=== PATIENT | male | born 1945 | race Caucasian/White ===

== ENCOUNTER → 2024-03-27 14:09 | Outpatient (REF) | payer OTHER, SELFPAY | LOC: MRI 3T 14:09 | PROVIDERS: ATTENDING PHYSICIAN Internal Medicine | DX: R29.898 Other symptoms and signs involving the musculoskeletal system (principal) | CPT/HCPCS: 72141 ==

== ENCOUNTER → 2024-06-23 14:35 | Outpatient (REF) | payer OTHER, SELFPAY | LOC: PAVMRI 14:35 | PROVIDERS: ATTENDING PHYSICIAN Specialist; FAMILY PHYSICIAN Internal Medicine | DX: G60.3 Idiopathic progressive neuropathy (principal); R53.1 Weakness | CPT/HCPCS: 72158; A9575 ==

== ENCOUNTER → 2024-08-14 10:43 | Outpatient (REF) | payer OTHER, SELFPAY | LOC: PAVMRI 10:43 | PROVIDERS: ATTENDING PHYSICIAN Specialist; FAMILY PHYSICIAN Internal Medicine | DX: R53.1 Weakness (principal); G60.3 Idiopathic progressive neuropathy | CPT/HCPCS: 70553; A9575 ==

== ENCOUNTER → 2024-09-18 11:31 | Outpatient (REF) | payer OTHER, SELFPAY | LOC: PAVMRI 11:31 | PROVIDERS: ATTENDING PHYSICIAN Specialist; FAMILY PHYSICIAN Internal Medicine | DX: I63.331 Cerebral infarction due to thrombosis of right posterior cerebral artery (principal) | CPT/HCPCS: 70544; 70547 ==

== ENCOUNTER → 2024-10-15 13:26 | Outpatient (REF) | payer OTHER, SELFPAY | LOC: RAD 13:26 | PROVIDERS: ATTENDING PHYSICIAN Specialist; FAMILY PHYSICIAN Internal Medicine | DX: I63.331 Cerebral infarction due to thrombosis of right posterior cerebral artery (principal) | CPT/HCPCS: 93925 ==

== ENCOUNTER → 2025-03-27 12:51 | Outpatient (REF) | payer OTHER, SELFPAY | LOC: RCS 12:51 | PROVIDERS: ATTENDING PHYSICIAN Internal Medicine | DX: I50.31 Acute diastolic (congestive) heart failure (principal) | CPT/HCPCS: 93306 ==

== ENCOUNTER → 2025-04-29 11:42 | Outpatient (REF) | payer OTHER, SELFPAY | LOC: DHSLP 11:42 | PROVIDERS: ATTENDING PHYSICIAN Internal Medicine | DX: G47.33 Obstructive sleep apnea (adult) (pediatric) (principal); R09.02 Hypoxemia | CPT/HCPCS: 95800 ==

== ENCOUNTER 2025-04-30 10:13 | Day surgery (SDC) | payer OTHER, SELFPAY ==
[2025-04-30] VITALS (10 sets, daily range): BP systolic 98–115; BP diastolic 48–96; BMI 35.6
[2025-04-30 13:32] LABS: ACT-LR - POC 382 Seconds (116-155)
--- NOTE | 2025-04-30 13:58 | ITS.CL.ANGIO ---
Lead Technician - Angioplasty
Angioplasty
Procedure Report:
CARDIAC CATHETERIZATION REPORT
Date of Procedure: 04/30/2025
Referring: Garth Thompson M.D.
Indication: New cardiomyopathy, congestive heart failure, hospitalized at [facility], consistent dyspnea on exertion.
PROCEDURE:
1. Right heart catheterization.
2. Coronary angiography.
3. Left heart catheterization.
4. Successful IFR of the 60% mid LAD lesion.
5. Successful PCI of the 60% mid LAD lesion.
6. Successful IVUS of the proximal and mid LAD.
A total of 42 minutes of procedural/moderate sedation was utilized. An independent medical records auditor was present to assist with and help manage the patient's level of consciousness and physiologic status.
ACCESS:
1. Failed 6 Luxembourger right radial artery using a modified Seldinger technique delete under ultrasound guidance.
2. 5 Luxembourger right antecubital vein using a modified Seldinger technique with a micropuncture kit under ultrasound guidance.
3. 6 Luxembourger right common femoral artery using a modified Seldinger technique with a micropuncture kit under ultrasound guidance.
CATHETERS:
1. 5 Luxembourger balloon.
2. 5 Luxembourger JL 3.5.
3. 5 Luxembourger JR4.
4. 6 Luxembourger EBU 4.0 guiding catheter.
HEMODYNAMIC DATA
Weight (kg): 109.4
AO (s/d/x, mmHg): 85/59/70
LV (s/x, mmHg): 86/7
PCWP (a/v/x, mmHg):
PA (s/d/x, mmHg): 34/16/22
RV (s/x, mmHg): 34/6
RA (a/v/x, mmHg):
SVC SvO2 (%): 66.4
IVC SvO2 (%): Not obtained.
RA SvO2 (%): Not obtained.
RV SvO2 (%): Not obtained.
PA SvO2 (%): 66.4
SaO2 (%): 93.5
Hbg (g/dL): 15.7
EULOGIO
CO (L/min): 4.50
CI (L/min/m2): 1.9
Thermodilution
CO (L/min): Not performed.
CI (L/min/m2): Not performed.
TPG (mmHg): 15
PVR (Arias Units): 3.33
SVR (dynes*seconds*cm^-5): 1138
AVO2 Diff (Volume %): 5.79
AV gradient (x, mmHg): None.
AV area (cm2): Normal.
MV gradient (x, mmHg): Not obtained.
MV area (cm2): Not obtained.
LEFT VENTRICULOGRAPHY: Not performed.
AORTOGRAPHY: Not performed.
CORONARY ANGIOGRAPHY
Dominance: Right.
Left Main: Normal size, bifurcating vessel. There is no coronary artery disease.
LAD: Normal size vessel giving rise to 2 diagonals before terminating near the apex. There is a 30-40% lesion in the proximal vessel, followed by a 20% lesion in the mid vessel. There is a separate, discrete, hazy 60% lesion in the mid LAD
spanning the origin of D2. There are luminal irregularities in both diagonals.
Ramus: Congenitally absent.
Circumflex: Normal size, nondominant vessel giving rise to 1 large obtuse marginal. There are minor luminal irregularities.
RCA: Large size, dominant vessel. There is a 20% lesion in the distal RCA.
INTERVENTIONS
1. Applying hemostasis to the right radial artery after failed access.
2. Blood pressure support of bradycardia and hypotension during initial diagnostic evaluation.
3. IFR of the 60% mid LAD lesion, demonstrating occlusive disease (0.86).
4. Successful PCI of the occlusive 60% mid LAD lesion (Medtronic Kelvin [place] 3.5 x 22 EDEN, postdilated with a 3.5 NC balloon throughout) with reduction in stenosis to 0% in the LAD, resulting in minor plaque shift into the second diagonal, but
maintaining HERMINIO III flow throughout both vessels.
5. Successful IVUS of the proximal and mid LAD.
Narrative:
During access, the right radial artery was identified on ultrasound and punctured using a standard access needle. The access wire advanced without resistance. While attempting to place the sheath, we encountered significant resistance with
advancement. At that point, the wire was no longer free within the lumen of the sheath, suggesting that there was significant local dissection. The sheath was pulled back and a 5 Luxembourger dilator was advanced over the deformed wire in an attempt to
salvage the access point. The 5 Luxembourger dilator would not advance over the wire and the initial right radial access was abandoned. The patient maintained a good pulse and the radial artery was revisualized under ultrasound. The artery was
punctured again at a more proximal point. Once again, the wire was advanced without resistance and the sheath was readvanced over this wire. Once again, we encountered significant resistance when trying to advance the sheath resulting in
significant deformation of the wire. At this point, we abandon radial access. A radial band was placed for hemostasis and to avoid any local hematoma.
After obtaining femoral access, the patient underwent an uneventful right heart catheterization. Sedation was given after obtaining pulmonary artery saturation. After removing the pulmonary artery catheter, we proceeded with left heart
catheterization and coronary angiography. During this time, we observed that the patient's systemic blood pressure was fairly low. The patient did complain of a sensation like he is going to lose consciousness. LVEDP was 7 mmHg with no gradient
on pullback. The patient was given an IV fluid bolus and phenylephrine 100 mg. Atropine 0.5 mg was given. This resulted in improvement in heart rate and a marginal improvement in his blood pressure. Norepinephrine was started at 5 mcg/kg/min
with excellent blood pressure response. With his blood pressure reestablished, the diagnostic coronary angiography was completed.
The decision was made to perform physiologic testing of the 60% mid LAD lesion spanning the origin of the second diagonal. The diagnostic catheter was removed over a wire and exchanged for a(n) 6 Luxembourger EBU 4.0 guiding catheter. The guiding
catheter was advanced into the ascending aorta and seated in the left main coronary artery. Additional heparin was given to obtain an ACT greater than 250 seconds. An iFR wire was zeroed outside of the body, then inserted into the guiding sheath.
The wire was advanced and the transducer was normalized just outside of the guiding catheter tip. The wire was advanced into the distal LAD. Three iFR measurements were taken. The lesion was determined to be [occlusive/nonocclusive] (0.86).
The decision was made to proceed with percutaneous coronary intervention. The Omni wire was advanced into the second diagonal for protection. A Power Turn Flex wire was advanced into the distal LAD. The 60% mid LAD lesion was predilated with a 3.0
x 12 semi-compliant balloon to 12 arlyn. The semi-compliant balloon was removed and a Medtronic Kelvin [place] 3.5 x 22 drug-eluting stent was advanced. The stent was deployed at 12 atmospheres. The stent balloon was removed. A 3.5 x 15 noncompliant
balloon was advanced into the stent and the stent was postdilated to 16 atmospheres.
Angiography revealed an excellent result in the LAD with plaque shift into the second diagonal. The power turn flex wire was withdrawn into the stent and readvanced into the second diagonal, demonstrating that both arteries were percutaneously
accessible. The Omni wire was removed from the second diagonal and pulled out from behind the jailing stent. As part of this removal, the guide was pulled forward into the LAD before jumping back after liberation of the Omni wire. With the Omni
wire freed from the jailing stent, it was readvanced into the distal LAD without issue.
Because the guide had jumped forward into the LAD, the decision was made to perform intracoronary imaging. An IVUS catheter was advanced through the guiding catheter and into the ostium of the artery. Ring down was performed once the imaging crystal
was no longer inside of the guiding catheter. The IVUS catheter was advanced into the distal LAD. Intravascular ultrasound was performed in a retrograde fashion using a slow pullback. Intracoronary imaging demonstrated definitive atherosclerosis
throughout the visualized portion on angiography within the LAD. The stent was well-expanded and well apposed. There was no evidence of dissection or vessel disruption..
Angiography was performed in orthogonal views, confirming good stent expansion and an excellent angiographic result. The coronary wire was withdrawn and the guide was disengaged from the artery. The catheter was removed over a standard J-wire.
Closure Device: Vascular band for the right radial artery access attempt, 6 Luxembourger Angio-Seal for the right common femoral artery and manual pressure for the right antecubital vein.
Radiation dose (mGy): 968.68
DAP (cm2.Gy): 64.4391
Fluoroscopy time (minutes): 12.0
CONCLUSIONS:
1. Right dominant circulation with a 20% lesion in the distal RCA, a 30-40% lesion in the proximal LAD, a 20% lesion in the mid LAD and a separate, discrete, hazy, occlusive 60% lesion in the mid LAD spanning the origin of D2 (IFR = 0.86) status
post successful IVUS guided PCI (Medtronic [place] 3.5 x 22 EDEN, postdilated with a 3.5 NC balloon throughout) with reduction in LAD stenosis to 0%, resulting in minor plaque shift into the second diagonal but maintaining HERMINIO-3 flow in both
vessels.
2. Normal to low filling pressures (LVEDP = 7 mmHg, PCWP = 7 mmHg at 109.4 kg).
3. Abnormal hemodynamic response during diagnostic cardiac catheterization with bradycardia and hypotension requiring volume bolus, phenylephrine bolus and initiation of norepinephrine, resolved by the end of the case.
4. Failed access to the right radial artery resulting in significant wire deformation.
5. Known cardiomyopathy on echocardiogram, LVEF 40%.
RECOMMENDATIONS:
1. Expectant management after cardiac catheterization via failed right radial, successful right common femoral and right antecubital approach.
2. Limited weight bearing on the right wrist for one week.
3. Dual antiplatelet therapy with aspirin and clopidogrel for at least 12 months, followed by aspirin indefinitely.
4. OMT/GDMT as hemodynamics will tolerate.
5. Aggressive secondary prevention. Increase atorvastatin to 40 mg daily. Goal LDL <55.
6. Referral to cardiac rehab.
7. Monitor overnight given hypotensive episode and PCI.
Copy to: Garth Thompson M.D., Acosta Arnold D.O.
Jaime Allison DO, FACC, FACP
[2025-04-30] MEDS: NSS 1000 IV (14:39)
--- NOTE | 2025-04-30 15:29 | CM ---
Reviewed chart. Met with and Mrs. Alejandro to review discharge plans. He states prior to admission he resides with his spouse in a one story home with two steps to enter. He states he resides in a [place] [facility] [address] community [facility]. He
states he has been there for ten years. He states prior to admission he he ambulated with a single point cane for balance and independent with adls. He states he has a single point cane and no other DME in the home. He states he is current with
[facility] and would like to continue [facility] He states has a prescription plan and uses [facility]. Telephone call to [facility] to review o resume services. Will need to sent discharge instructions to
[facility]. The discharge plan is to return home with his spouse and resumption of [facility] when medically stable.
[2025-04-30] MEDS: LIPITOR 40 MG PO (17:25)
[2025-04-30] MEDS: ALDACTONE 25 MG PO (17:25)
--- NOTE | 2025-04-30 18:33 | PTCARENOTE ---
1420 Rec'd Pt A,A+Ox3 from card nitriles lab technician, R radial band in place, CD+I, R brachial dsg D+I, R femoral dsg D+I. Weal pulses to R radial and R dP. Pt denies pain. Pt unable to use urinal while in bed, at around 1600, one hour before his ordered
bedresr was finished, Pt insisted on lorenzo to the bathroom. He said, 'I'm getting up whether I'm supposed to or not, I'm sorry, I can't wait'. Pt assisted to BR, his femoral, brachial and radial dsgs remain D+I despite him getting OOB too soon.
[2025-04-30] MEDS: ENTRESTO 49 MG/51 MG 1 TAB PO (20:29)
[2025-04-30] MEDS: ZYLOPRIM 100 MG PO (22:40)
[2025-04-30] MEDS: XALATAN OPHTHALMIC SOLUTION 1 DROP BOTH EYES (22:40)
[2025-04-30] MEDS: AMBIEN 10 MG PO (22:40)
[2025-04-30] MEDS: LEXAPRO 5 MG PO (22:40)
[2025-05-01 02:54] VITALS: BP 112/77
[2025-05-01 03:41] LABS: Hemoglobin 13.9 g/dL (13.0-18.0); Mean Corp Hgb Conc. 33.9 g/dL (33.0-37.0); Mean Corpuscular Volume 88.6 fL (80.0-94.0); Mean Platelet Volume 10.5 fL (7.4-10.4); Platelet Count 176 10^3/uL (130-400); Red Blood Cell Count 4.63 10^6/uL (4.70-6.10); Red Cell Dist. Width 13.6 % (11.5-14.5); White Blood Cell Count 8.6 10^3/uL (4.8-10.8)
[2025-05-01 03:58] LABS: Blood Urea Nitrogen 29 mg/dl (9-20); Calcium 10.2 mg/dl (8.4-10.2); Carbon Dioxide 23 mmol/L (22-30); Chloride 109 mmol/L (98-107); Estimated Creatinine Clearance 54 ml/min; Glucose 114 mg/dl (70-99); HDL Cholesterol 35 mg/dl; LDL Cholesterol, Calculated 53 mg/dl; Potassium 4.4 mmol/L (3.5-5.1); Sodium 139 mmol/L (135-145); Total Cholesterol 127 mg/dl (50-199); Triglyceride 195 mg/dl (10-149); Very Low Density Lipoprotein 39 mg/dl (0-30); eGFR 50.81
--- NOTE | 2025-05-01 04:50 | PTCARENOTE ---
Assumed care of the pt @ 1900 Pt is AAOx3 SB/SR on the monitor VSS rt radial and rt groin cath site dressing c/d/i. Ambulates in room Call addison within reach.
[2025-05-01 07:18] VITALS: BP 133/70
[2025-05-01] MEDS: FARXIGA 5 MG PO (08:55)
[2025-05-01] MEDS: ENTRESTO 49 MG/51 MG 1 TAB PO (08:55)
[2025-05-01] MEDS: NORVASC 10 MG PO (08:55)
[2025-05-01] MEDS: TOPROL XL 100 MG PO (08:56)
[2025-05-01] MEDS: LASIX 40 MG PO (08:56)
[2025-05-01] MEDS: PLAVIX 75 MG PO (08:56)
[2025-05-01] MEDS: LOW STRENGTH ASPIRIN 81 MG PO (08:56)
--- NOTE | 2025-05-01 09:33 | CM ---
Reviewed chart. Met with Mr. Alejandro to review discharge plans. He states he is feeling well and maybe able to go home soon. We reviewed resuming VNA Services with [facility]. He is agreeable to continuing with [facility]. Prior to
admission he resides with his spouse in a one story home two steps to enter. Prior to admission he ambulates with a single point cane for balance and independent with adls. He has a single point cane at home. He has a prescription plan ans uses
[facility]. The discharge plan is to return home with his spouse and resumption of [facility] services when medically stable.
--- NOTE | 2025-05-01 12:28 | W.PN.CD ---
Today's Communication / Plan
-
Stable on home medications.
DAPT with aspirin/clopidogrel.
Repeat echo in 12 weeks.
Stable for outpatient follow up.
Impression / Plan
-
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
EDEN). The procedure was complicated by hypotension (prior to intervention) requiring brief pressor support.
#CAD
-New diagnosis.
-S/P cath, demonstrating occlusive 60% mLAD lesion (iFR = 0.86) and subsequent PCI (Medtronic Kelvin [place] 3.5 x 22 EDEN) with reduction in stenosis to 0%, maintaining HERMINIO III flow.
-DAPT with aspirin/clopidogrel for at least 12 months, followed by aspirin indefintely.
-OMT with metoprolol, amlodipein and high potency statin.
-Referral to cardiac rehab.
#Cardiomyopathy/HFmEF
-Recently diagnosed at [facility].
-LVEF 40%.
-GDMT:
-Diuretics: Furosemide 40 mg daily.
-Beta giovani: Metoprolol succinate 100 mg daily.
-ACEI/ARB/ARNi: Sacubitril-Valsartan 49-51 mg BID.
-MRA: Spironolactone 25 mg daily.
-SGLT2i: Dapagliflozin 10 mg daily.
-ICD: Not currently indicated.
-Repeat echocardiogram in 12 weeks after revascularization and GDMT.
#HTN
-Chronic, stable.
-Continue metoprolol, sacubitril-valsartan, spironolactone and amlodipine.
#Procedural hypotension
-Acute, resolved.
-Possible vagal reaction vs. contrast reaction?
-Required volume bolus, phenylephrine bolus and norepinephrine gtt.
Subjective/Interval History:
PCI of LAD yesterday.
Diagnostic portion of the cath resulted in relative hypotension requiring volume/pressors.
Hypotension resolved. Tolerating home anti-hypertensives.
Feels well.
DATA:
Cardiac catheterization/PCI, 04/30/2025:
CONCLUSIONS:
1. Right dominant circulation with a 20% lesion in the distal RCA, a 30-40% lesion in the proximal LAD, a 20% lesion in the mid LAD and a separate, discrete, hazy, occlusive 60% lesion in the mid LAD spanning the origin of D2 (IFR = 0.86) status
post successful IVUS guided PCI (Medtronic [place] 3.5 x 22 EDEN, postdilated with a 3.5 NC balloon throughout) with reduction in LAD stenosis to 0%, resulting in minor plaque shift into the second diagonal but maintaining HERMINIO-3 flow in both
vessels.
2. Normal to low filling pressures (LVEDP = 7 mmHg, PCWP = 7 mmHg at 109.4 kg).
3. Abnormal hemodynamic response during diagnostic cardiac catheterization with bradycardia and hypotension requiring volume bolus, phenylephrine bolus and initiation of norepinephrine, resolved by the end of the case.
4. Failed access to the right radial artery resulting in significant wire deformation.
5. Known cardiomyopathy on echocardiogram, LVEF 40%.
Physical Exam
Vital Signs/Labs
Vital Signs
Temp Pulse Resp BP Pulse Ox
36.9 C 60 18 133/70 97
05/01/25 07:20 05/01/25 07:45 05/01/25 07:20 05/01/25 07:18 05/01/25 07:20
04/30/25 05/01/25 05/02/25
11:59 11:59 11:59
Actual Weight 115.666 kg
05/01/25 03:05
05/01/25 03:04
Triglycerides 195 mg/dl (10-149) H 05/01/25 03:04
LDL Cholesterol, Calc 53 mg/dl 05/01/25 03:04
VLDL Cholesterol, Calc 39 mg/dl (0-30) H 05/01/25 03:04
HDL Cholesterol 35 mg/dl 05/01/25 03:04
Physical Exam
Constitutional: No acute distress and Comfortable
EENT: Anicteric and Moist mucous membranes
Cardiovascular: Rhythm & rate is regular, Pedal edema is absent, JVD pressure is normal, S1S2 is normal and Murmur/rub/gallop absent
Respiratory: Respiratory effort normal, Lungs clear to auscul., Wheeze Absent, Crackles Absent and Rhonchi Absent
GI: Soft, Distention absent, Flat, Non tender and Normal bowel sounds
Neuro/Psych: AO x 3
Other: Cath Site (Right radial and femoral access sites are C/D/I.)
Data Reviewed
-
Date of Service: May 01, 2025
Medical Decision Making: Reviewed Test Results, Independent Historian Assessment and Test Interpretation
EKG: Tracing Personally Visualized and interpreted and Report Reviewed by me
X-Ray/CT/US/MRI/NUC/PET: Image Personally Visualized and interpreted and Report Reviewed by me
Medical Tests (PFT, Pathology etc): Image Personally Visualized and interpreted and Report Reviewed by me
Labs: Labs Reviewed by me
Old Records: Reviewed
[2025-05-01 12:36] VITALS: BP 125/82
[2025-05-01 14:11] VITALS: BP 103/70
--- NOTE | 2025-05-01 14:15 | W.DS.TRANS ---
DC Summary - Accounting Officer
-
Discharge Instructions:
Discharge Diagnosis/Procedures Angioplasty with stent to LAD
Diet Low Cholesterol
Driving Restrictions No driving for 24 hours
Instructions:
Stand-Alone Forms: DC Instructions- Cath/EP Lab
Changes to Home Medications: Yes
Discharge Medications:
DC Medications w/original date entered in [facility]
aspirin 81 mg tablet 81 mg PO DAILY 05/18/09
hrdbunmnzxqk-rctrnhaf-hgzqcm tablet (Centrum Silver tablet) 1 ea PO DAILY 05/18/09
travoprost 0.004 % eye drops 1 drp BOTH EYES HS 05/18/09
Cholecalciferol (Vitamin D3) [Vitamin D3] 50 mcg PO DAILY 04/12/22
allopurinol 100 mg tablet 100 mg PO HS 04/12/22
amlodipine 10 mg tablet 10 mg PO DAILY 04/12/22
escitalopram oxalate 5 mg tablet 5 mg PO HS 04/12/22
metoprolol succinate 100 mg tablet,extended release 24 hr 100 mg PO DAILY 04/12/22
zinc 50 mg tablet 50 mg PO DAILY 04/12/22
zolpidem 10 mg tablet 10 mg PO HS 04/12/22
cholecalciferol (vitamin D3) 50 mcg (2,000 unit) capsule (Vitamin D3) 50 mcg PO DAILY 04/30/25
clopidogrel 75 mg tablet (Plavix) 75 mg PO DAILY 04/30/25
dapagliflozin propanediol 5 mg tablet (Farxiga) 5 mg PO DAILY 04/30/25
furosemide 40 mg tablet 40 mg PO DAILY 04/30/25
nifedipine 60 mg tablet,extended release 60 mg PO DAILY 04/30/25
sacubitril 49 mg-valsartan 51 mg tablet (Entresto) 1 tab PO BID 04/30/25
spironolactone 25 mg tablet 25 mg PO 1800 04/30/25
atorvastatin 40 mg tablet 40 mg PO QPM #90 tabs 05/01/25
Home Medication Changes
increased atorvastatin from 10 to 40mg
Pending Results: No
[2025-05-01] MEDS: LIPITOR 40 MG PO (14:55)
== END 2025-05-01 16:46 | disposition home or self-care (01) ==
LOC: CATH 10:13
PROVIDERS: Nurse Practitioner Adult Health; ATTENDING PHYSICIAN Internal Medicine Cardiovascular Disease; FAMILY PHYSICIAN Internal Medicine; OTHER PHYSICIAN Internal Medicine Cardiovascular Disease
DX: I25.10 Atherosclerotic heart disease of native coronary artery without angina pectoris (principal); I13.0 Hypertensive heart and chronic kidney disease with heart failure and stage 1 through stage 4 chronic kidney disease, or unspecified chronic kidney disease; I50.9 Heart failure, unspecified; N18.9 Chronic kidney disease, unspecified; I42.9 Cardiomyopathy, unspecified; E78.5 Hyperlipidemia, unspecified; M10.9 Gout, unspecified; F32.A Depression, unspecified; Z85.46 Personal history of malignant neoplasm of prostate; G47.33 Obstructive sleep apnea (adult) (pediatric); Z87.891 Personal history of nicotine dependence; Z79.82 Long term (current) use of aspirin; Z79.02 Long term (current) use of antithrombotics/antiplatelets; Z79.84 Long term (current) use of oral hypoglycemic drugs
CPT/HCPCS: 93799; 92978; 99152; 99153; C1725; C1894; C1769; C1753; 80048; 80061; 85027; 85347; 93005; 93460; C1760; C1874; C9600; Q9967

== ENCOUNTER → 2025-07-27 12:42 | Outpatient (REF) | payer OTHER, SELFPAY | LOC: RCS 12:42 | PROVIDERS: ATTENDING PHYSICIAN Nurse Practitioner; FAMILY PHYSICIAN Internal Medicine | DX: I50.20 Unspecified systolic (congestive) heart failure (principal) | CPT/HCPCS: 93308; 93321; 93325 ==